=== PATIENT | female | born 1975 | race Hispanic/Latino ===

== ENCOUNTER 2021-06-23 12:03 | Inpatient (IN) | payer OTHER ==
[~2021-06-23] VITALS: Ht 177.8 cm; Wt 106.9 kg
[2021-06-23 12:43] LABS: BASOPHILS % (AUTO) 0.7 % (0.0-5.0); HEMATOCRIT 25.7 % (36-48); LYMPHOCYTES % (AUTO) 3.2 % (21.0-51.0); MEAN CORPUSCULAR HEMOGLOBIN 24.9 pg (27.0-33.0); MEAN CORPUSCULAR HGB CONC 31.5 g/dL (32.0-36.0); MEAN CORPUSCULAR VOLUME 79.1 fL (79-99); MONOCYTES % (AUTO) 4.8 % (3.0-13.0); NEUTROPHILS % (AUTO) 89.2 % (40.0-77.0); PLATELET COUNT (AUTO) 397 K/uL (130-400); RED BLOOD CELL COUNT(AUTO) 3.25 MIL/uL (4.00-5.50); RED CELL DISTRIBUTION WIDTH 14.6 % (11.0-15.5); WHITE BLOOD COUNT (AUTO) 22.5 K/uL (4.8-10.8)
[2021-06-23 12:58] LABS: APPEARANCE,URINE CLOUDY (CLEAR); BILIRUBIN,URINE SMALL (NEGATIVE); COLOR,URINE YELLOW (YELLOW); GLUCOSE, URINE (UA) NEGATIVE (NEGATIVE); KETONES,URINE 5 mg/dL (NEGATIVE); LEUKOCYTE ESTERASE ,URINE SMALL (NEGATIVE); NITRATE,URINE NEGATIVE (NEGATIVE); OCCULT BLOOD,URINE SMALL (NEGATIVE); PROTEIN,URINE 30 mg/dL (NEGATIVE); UROBILINOGEN,URINE 0.2 mg/dL (0.2-1.0)
[2021-06-23 13:12] LABS: CREATININE 2.2 mg/dL (0.5-1.5); POTASSIUM 4.9 mmol/L (3.5-5.1)
[2021-06-23 13:17] LABS: ALBUMIN 2.2 g/dL (3.5-5.0); BILIRUBIN,TOTAL 0.8 mg/dL (0.2-1.0); TOTAL PROTEIN, SERUM 7.8 g/dL (6.0-8.3)
[2021-06-23 13:20] LABS: HCG,QUAL RESULT NEGATIVE (NEGATIVE)
[2021-06-23 13:22] LABS: BACTERIA,URINE Moderate /HPF (None Seen)
[2021-06-23 13:23] LABS: AMORPHOUS SEDIMENT,UR Few /LPF (None Seen)
[2021-06-23] MEDS ORDERED: VANCOMYCIN 1G VIAL IVPB ONE (13:30)
[2021-06-23] MEDS ORDERED: INSULIN HUMULIN R 100 UNIT/ML 3ML IV ONE (13:30)
[2021-06-23] MEDS ORDERED: 0.9% NACL 250ML IVPB ONE (13:30)
[2021-06-23] MEDS: CLINDAMYCIN IVPB 600MG/50ML 50 ML IV SCH ×2 (13:39→22:03)
[2021-06-23] MEDS: 0.9%NACL 1000ML 1,000 ML IV SCH ×2 (13:39→16:43)
[2021-06-23] MEDS ORDERED: ZOSYN 3.375GM +NS 50ML IV ONE ×2 (14:00→14:30)
[2021-06-23] MEDS ORDERED: ZOSYN 3.375GM+NS 50ML 3.38 GM in 0.9%NACL 50ML 50 ML IV SCH (14:30)
[2021-06-23] MEDS ORDERED: PHARMACY COMMUNICATION MISC SCH ×2 (14:30)
[2021-06-23] MEDS ORDERED: 0.9%NACL 50ML 50 ML IV ONE (14:30)
[2021-06-23 15:32] LABS: HEMOGLOBIN A1C 10.1 % (4.0-6.0)
[2021-06-23 15:56] LABS: ABG BASE EXCESS -3.2 mmol/L (-2.0-3.0); ABG HCO3 19.9 mmol/L (21.0-28.0); ABG OXYGEN SATURATION 97.3 % (95.0-99.0); ABG PCO2 31 mmHg (32-45)
[2021-06-23] MEDS ORDERED: INSULIN GLARGINE 100 UNITS/ML 10 ML VIAL SQ ONE (16:30)
[2021-06-23] MEDS: LACTATED RINGERS 1000ML 1,000 ML IV SCH (16:41)
[2021-06-23] MEDS: LINEZOLID 600 MG/ISO-OSM 300 ML IV SCH (18:38)
[2021-06-23] MEDS: INSULIN HUMULIN R 100 UNIT/ML 3ML SQ SCH (18:53)
[2021-06-23 20:10] LABS: INR 1.36 (0.85-1.15); PROTHROMBIN TIME 14.4 SEC (9.6-11.6)
[2021-06-23 20:11] LABS: PARTIAL THROMBOPLASTIN TIME 36.4 SEC (26.3-35.5)
[2021-06-23] MEDS ORDERED: ONDANSETRON 4MG INJ ONE (20:39)
[2021-06-23] MEDS ORDERED: MORPHINE 2 MG SYG ONE (20:40)
[2021-06-23] MEDS: ONDANSETRON 4MG INJ IVP PRN (20:48)
[2021-06-23] MEDS: MORPHINE 2 MG SYG IVP PRN (20:48)
[2021-06-23] MEDS: ZOSYN 3.375GM+NS 50ML 50 ML IV SCH (21:00)
[2021-06-23] MEDS ORDERED: LABETALOL 20MG SYG IV PRN (21:00)
[2021-06-23] MEDS: FAMOTIDINE 20MG TAB PO SCH (22:03)
[2021-06-23] MEDS ORDERED: ROPIVACAINE 0.5% 5MG/ML 30ML IJ ONE (23:00)
[2021-06-23] MEDS ORDERED: MIDAZOLAM HCL 1 MG/ML 5ML VIAL ONE (23:00)
[2021-06-23] MEDS ORDERED: KETAMINE 50MG/ML SYRINGE 50 MG/ML DISP.SYRIN IV ONE (23:01)
[2021-06-23] MEDS ORDERED: MIDAZOLAM HCL 1 MG/ML 2ML VIAL ONE (23:25)
[2021-06-24] VITALS (46 sets, daily range): BP systolic 92–132; BP diastolic 45–70
[2021-06-24] MEDS: LACTATED RINGERS 1000ML 1,000 ML IV SCH ×3 (00:52→21:56)
[2021-06-24] MEDS: INSULIN HUMULIN R 100 UNIT/ML 3ML SQ SCH ×5 (01:14→17:51)
[2021-06-24] MEDS: LINEZOLID 600 MG/ISO-OSM 300 ML IV SCH ×2 (02:20→15:34)
[2021-06-24 04:15] LABS: BASOPHILS % (AUTO) 0.6 % (0.0-5.0); EOSINOPHILS % (AUTO) 0.4 % (0.0-8.0); HEMATOCRIT 22.2 % (36-48); LYMPHOCYTES % (AUTO) 6.6 % (21.0-51.0); MEAN CORPUSCULAR HEMOGLOBIN 25.7 pg (27.0-33.0); MEAN CORPUSCULAR HGB CONC 32.4 g/dL (32.0-36.0); MEAN CORPUSCULAR VOLUME 79.3 fL (79-99); MONOCYTES % (AUTO) 7.1 % (3.0-13.0); NEUTROPHILS % (AUTO) 83.9 % (40.0-77.0); PLATELET COUNT (AUTO) 346 K/uL (130-400); RED CELL DISTRIBUTION WIDTH 14.9 % (11.0-15.5); WHITE BLOOD COUNT (AUTO) 18.9 K/uL (4.8-10.8)
[2021-06-24 04:33] LABS: CREATININE 1.6 mg/dL (0.5-1.5); MAGNESIUM 1.4 mg/dL (1.80-2.40); PHOSPHORUS 3.8 mg/dL (2.5-4.9); POTASSIUM 4.4 mmol/L (3.5-5.1)
[2021-06-24] MEDS: CLINDAMYCIN IVPB 600MG/50ML 50 ML IV SCH ×2 (04:43→12:29)
[2021-06-24] MEDS ORDERED: MAGNESIUM 2GM PREMIX 50ML 50 ML IV ONE (04:57)
[2021-06-24] MEDS ORDERED: INSULIN GLARGINE 100 UNITS/ML 10 ML VIAL SQ SCH (08:05)
[2021-06-24] MEDS: ENOXAPARIN SODIUM 40 MG/0.4 ML SYRINGE SQ SCH (08:40)
[2021-06-24] MEDS: ZOSYN 3.375GM+NS 50ML 50 ML IV SCH ×2 (08:45→21:56)
[2021-06-24] MEDS: ONDANSETRON 4MG INJ IVP PRN (12:29)
[2021-06-24] MEDS: MORPHINE 2 MG SYG IVP PRN ×3 (12:30→22:42)
[2021-06-24] MEDS ORDERED: MAGNESIUM 2GM PREMIX 50ML 50 ML IV SCH (13:30)
[2021-06-24 14:19] LABS: APPEARANCE,URINE CLOUDY (CLEAR); BILIRUBIN,URINE NEGATIVE (NEGATIVE); COLOR,URINE YELLOW (YELLOW); GLUCOSE, URINE (UA) 100 mg/dL (NEGATIVE); KETONES,URINE NEGATIVE (NEGATIVE); LEUKOCYTE ESTERASE ,URINE MODERATE (NEGATIVE); NITRATE,URINE NEGATIVE (NEGATIVE); OCCULT BLOOD,URINE SMALL (NEGATIVE); PH,URINE 5.5 (5.0-8.0); PROTEIN,URINE TRACE mg/dL (NEGATIVE); UROBILINOGEN,URINE 0.2 mg/dL (0.2-1.0)
[2021-06-24 15:32] LABS: AMORPHOUS SEDIMENT,UR Few /LPF (None Seen); BACTERIA,URINE Few /HPF (None Seen); RBC,URINE 0-1 /HPF (0-1); SQUAMOUS EPITHELIAL CELL,UR Rare /HPF (0-2)
[2021-06-24 19:10] LABS: HEMATOCRIT 24.2 % (36-48)
[2021-06-24] MEDS: FAMOTIDINE 20MG TAB PO SCH (21:57)
[2021-06-25] VITALS (11 sets, daily range): BP systolic 108–148; BP diastolic 61–80
[2021-06-25] MEDS: INSULIN HUMULIN R 100 UNIT/ML 3ML SQ SCH ×10 (00:24→20:34)
[2021-06-25] MEDS: LINEZOLID 600 MG/ISO-OSM 300 ML IV SCH ×2 (03:29→14:17)
[2021-06-25] MEDS: MORPHINE 2 MG SYG IVP PRN ×4 (03:30→22:40)
[2021-06-25 03:42] LABS: HEMATOCRIT 24.3 % (36-48); MEAN CORPUSCULAR HEMOGLOBIN 25.8 pg (27.0-33.0); MEAN CORPUSCULAR HGB CONC 31.7 g/dL (32.0-36.0); MEAN CORPUSCULAR VOLUME 81.5 fL (79-99); PLATELET COUNT (AUTO) 359 K/uL (130-400); RED BLOOD CELL COUNT(AUTO) 2.98 MIL/uL (4.00-5.50); RED CELL DISTRIBUTION WIDTH 15.8 % (11.0-15.5); WHITE BLOOD COUNT (AUTO) 18.3 K/uL (4.8-10.8)
[2021-06-25 03:56] LABS: CREATININE 1.4 mg/dL (0.5-1.5); POTASSIUM 4.1 mmol/L (3.5-5.1)
[2021-06-25 04:13] LABS: BAND NEUTROPHILS % (MANUAL) 5 % (0-2); LYMPHOCYTES % (MANUAL) 6 % (22-44); MONOCYTES % (MANUAL) 5 % (2-9); SEGMENTED NEUTROPHILS % 84 % (40-70)
[2021-06-25 04:14] LABS: MAN.DIFF COMMENT-IMPRESSION MANUAL DIFFERENTIAL
[2021-06-25] MEDS ORDERED: Vitamin B Complex/Vit C/Folic Acid ONE (07:28)
[2021-06-25] MEDS: Vitamin B Complex/Vit C/Folic Acid PO SCH (07:53)
[2021-06-25] MEDS: ENOXAPARIN SODIUM 40 MG/0.4 ML SYRINGE SQ SCH (07:54)
[2021-06-25] MEDS: ZOSYN 3.375GM+NS 50ML 50 ML IV SCH ×2 (07:54→19:34)
[2021-06-25] MEDS: INSULIN GLARGINE 100 UNITS/ML 10 ML VIAL SQ SCH ×2 (07:58→07:59)
[2021-06-25] MEDS: LACTATED RINGERS 1000ML 1,000 ML IV SCH ×3 (07:59→20:29)
[2021-06-25] MEDS: ACETAMINOPHEN WITH CODEINE 1 TAB TAB PO PRN (12:06)
[2021-06-25] MEDS: AMLODIPINE 5 MG TAB PO SCH (14:17)
[2021-06-25] MEDS: FAMOTIDINE 20MG TAB PO SCH (19:34)
[2021-06-26] VITALS (21 sets, daily range): BP systolic 117–160; BP diastolic 51–85
[2021-06-26] MEDS: LINEZOLID 600 MG/ISO-OSM 300 ML IV SCH (01:56)
[2021-06-26 04:06] LABS: BASOPHILS % (AUTO) 0.5 % (0.0-5.0); EOSINOPHILS % (AUTO) 1.3 % (0.0-8.0); HEMATOCRIT 25.8 % (36-48); LYMPHOCYTES % (AUTO) 13.1 % (21.0-51.0); MEAN CORPUSCULAR HEMOGLOBIN 25.2 pg (27.0-33.0); MEAN CORPUSCULAR HGB CONC 31.4 g/dL (32.0-36.0); MEAN CORPUSCULAR VOLUME 80.4 fL (79-99); MONOCYTES % (AUTO) 8.8 % (3.0-13.0); NEUTROPHILS % (AUTO) 73.3 % (40.0-77.0); PLATELET COUNT (AUTO) 366 K/uL (130-400); RED BLOOD CELL COUNT(AUTO) 3.21 MIL/uL (4.00-5.50); RED CELL DISTRIBUTION WIDTH 15.8 % (11.0-15.5); WHITE BLOOD COUNT (AUTO) 12.7 K/uL (4.8-10.8)
[2021-06-26 04:25] LABS: CREATININE 1.2 mg/dL (0.5-1.5); MAGNESIUM 1.7 mg/dL (1.80-2.40); PHOSPHORUS 5.1 mg/dL (2.5-4.9); POTASSIUM 4.1 mmol/L (3.5-5.1)
[2021-06-26] MEDS: INSULIN HUMULIN R 100 UNIT/ML 3ML SQ SCH ×7 (05:36→20:37)
[2021-06-26] MEDS: INSULIN GLARGINE 100 UNITS/ML 10 ML VIAL SQ SCH (05:37)
[2021-06-26] MEDS: MORPHINE 2 MG SYG IVP PRN ×3 (06:06→17:38)
[2021-06-26] MEDS ORDERED: DEXTROSE 50%-WATER 50 ML DISP.SYRIN IV PRN (07:00)
[2021-06-26] MEDS ORDERED: GLUCAGON 1MG KIT 1 MG ML IM PRN (07:00)
[2021-06-26] MEDS: ENOXAPARIN SODIUM 40 MG/0.4 ML SYRINGE SQ SCH (08:52)
[2021-06-26] MEDS: AMLODIPINE 5 MG TAB PO SCH (08:53)
[2021-06-26] MEDS: Vitamin B Complex/Vit C/Folic Acid PO SCH (08:53)
[2021-06-26] MEDS: ZOSYN 3.375GM+NS 50ML 50 ML IV SCH (09:04)
[2021-06-26] MEDS: LACTATED RINGERS 1000ML 1,000 ML IV SCH (12:19)
[2021-06-26] MEDS ORDERED: 0.9%NACL 1000ML 1,000 ML IV ONE (15:30)
[2021-06-26] MEDS ORDERED: PROPOFOL 10 MG/ML 20ML VIAL IV ONE (15:35)
[2021-06-26] MEDS ORDERED: ONDANSETRON 4MG INJ ONE (15:35)
[2021-06-26] MEDS ORDERED: MIDAZOLAM HCL 1 MG/ML 2ML VIAL ONE (15:35)
[2021-06-26] MEDS ORDERED: LIDOCAINE PF 100MG/5ML (2%) SYRINGE 5ML ONE (15:35)
[2021-06-26] MEDS ORDERED: MEPERIDINE-PF 25 MG/ML SYG ONE (15:36)
[2021-06-26] MEDS ORDERED: FENTANYL CITRATE PF 50 MCG/1 ML 2ML VIAL ONE ×2 (15:36→16:27)
[2021-06-26] MEDS ORDERED: KETAMINE 50MG/ML SYRINGE 50 MG/ML DISP.SYRIN IV ONE (15:47)
[2021-06-26] MEDS: CEFAZOLIN SODIUM 1 GM VIAL ONE ×2 (16:12→17:14)
[2021-06-26] MEDS: FAMOTIDINE 20MG TAB PO SCH (20:36)
[2021-06-27] MEDS: MORPHINE 2 MG SYG IVP PRN ×4 (00:30→23:39)
[2021-06-27 03:56] LABS: BASOPHILS % (AUTO) 0.8 % (0.0-5.0); HEMATOCRIT 27.6 % (36-48); LYMPHOCYTES % (AUTO) 14.5 % (21.0-51.0); MEAN CORPUSCULAR HGB CONC 31.5 g/dL (32.0-36.0); MEAN CORPUSCULAR VOLUME 82.4 fL (79-99); MONOCYTES % (AUTO) 9.1 % (3.0-13.0); NEUTROPHILS % (AUTO) 69.1 % (40.0-77.0); PLATELET COUNT (AUTO) 370 K/uL (130-400); RED BLOOD CELL COUNT(AUTO) 3.35 MIL/uL (4.00-5.50); RED CELL DISTRIBUTION WIDTH 15.9 % (11.0-15.5); WHITE BLOOD COUNT (AUTO) 11.9 K/uL (4.8-10.8)
[2021-06-27 04:12] VITALS: BP 165/84
[2021-06-27 04:15] LABS: ALBUMIN 1.7 g/dL (3.5-5.0); BILIRUBIN,TOTAL 0.2 mg/dL (0.2-1.0); CRP QUANTITATIVE 84.1 mg/L (0.00-9.0); MAGNESIUM 1.8 mg/dL (1.80-2.40); POTASSIUM 3.9 mmol/L (3.5-5.1); TOTAL PROTEIN, SERUM 7.2 g/dL (6.0-8.3)
[2021-06-27 05:06] LABS: ERYTHROCYTE SEDIMENTATION RATE 128 MM/HR (0-20)
[2021-06-27] MEDS: INSULIN HUMULIN R 100 UNIT/ML 3ML SQ SCH ×7 (06:37→21:00)
[2021-06-27] MEDS ORDERED: INSULIN GLARGINE 100 UNITS/ML 10 ML VIAL SQ SCH (07:00)
[2021-06-27] MEDS ORDERED: COMPOUND IV MISC 1 EACH IVSOLN MISC PRN (07:00)
[2021-06-27] MEDS: INSULIN GLARGINE 100 UNITS/ML 10 ML VIAL SQ SCH ×2 (07:28→07:40)
[2021-06-27 07:30] VITALS: BP 144/79
[2021-06-27] MEDS: LACTATED RINGERS 1000ML 1,000 ML IV SCH ×2 (07:45→18:30)
[2021-06-27] MEDS: Vitamin B Complex/Vit C/Folic Acid PO SCH (07:55)
[2021-06-27] MEDS: ENOXAPARIN SODIUM 40 MG/0.4 ML SYRINGE SQ SCH (07:57)
[2021-06-27] MEDS: AMLODIPINE 5 MG TAB PO SCH (10:17)
[2021-06-27] MEDS: IRON SUCROSE COMPLEX 300 MG in 0.9% NACL 250ML 250 ML IV SCH (10:18)
[2021-06-27 11:00] VITALS: BP 135/87
[2021-06-27] MEDS: ZINC SULFATE 220 CAPSULE PO SCH (11:54)
[2021-06-27 16:00] VITALS: BP 166/82
[2021-06-27] MEDS: EPOETIN ALFA-EPBX (NON-ESRD) 10,000 UNIT/ML VIAL SQ SCH (17:59)
[2021-06-27] MEDS: FAMOTIDINE 20MG TAB PO SCH (19:56)
[2021-06-27 20:41] VITALS: BP 149/78
[2021-06-27 23:56] VITALS: BP 153/85
[2021-06-28 03:59] VITALS: BP 168/80
[2021-06-28 04:25] LABS: BASOPHILS % (AUTO) 0.9 % (0.0-5.0); HEMATOCRIT 29.1 % (36-48); LYMPHOCYTES % (AUTO) 20.2 % (21.0-51.0); MEAN CORPUSCULAR HEMOGLOBIN 25.5 pg (27.0-33.0); MEAN CORPUSCULAR HGB CONC 31.6 g/dL (32.0-36.0); MEAN CORPUSCULAR VOLUME 80.6 fL (79-99); MONOCYTES % (AUTO) 9.4 % (3.0-13.0); NEUTROPHILS % (AUTO) 61.6 % (40.0-77.0); NUCLEATED RED BLOOD CELLS 0.2 % (0.0-0.19); PLATELET COUNT (AUTO) 424 K/uL (130-400); RED BLOOD CELL COUNT(AUTO) 3.61 MIL/uL (4.00-5.50); RED CELL DISTRIBUTION WIDTH 15.7 % (11.0-15.5); WHITE BLOOD COUNT (AUTO) 10.3 K/uL (4.8-10.8)
[2021-06-28] MEDS: LACTATED RINGERS 1000ML 1,000 ML IV SCH ×3 (04:30→20:21)
[2021-06-28 04:55] LABS: ALBUMIN 1.9 g/dL (3.5-5.0); BILIRUBIN,TOTAL 0.3 mg/dL (0.2-1.0); POTASSIUM 3.8 mmol/L (3.5-5.1); TOTAL PROTEIN, SERUM 8.1 g/dL (6.0-8.3)
[2021-06-28 07:30] VITALS: BP 158/86
[2021-06-28] MEDS: INSULIN HUMULIN R 100 UNIT/ML 3ML SQ SCH ×7 (07:30→20:16)
[2021-06-28] MEDS: EPOETIN ALFA-EPBX (NON-ESRD) 10,000 UNIT/ML VIAL SQ SCH (07:47)
[2021-06-28] MEDS: INSULIN GLARGINE 100 UNITS/ML 10 ML VIAL SQ SCH (08:49)
[2021-06-28] MEDS: ENOXAPARIN SODIUM 40 MG/0.4 ML SYRINGE SQ SCH (08:51)
[2021-06-28] MEDS: Vitamin B Complex/Vit C/Folic Acid PO SCH (08:51)
[2021-06-28] MEDS: ZINC SULFATE 220 CAPSULE PO SCH (08:51)
[2021-06-28] MEDS: AMLODIPINE 5 MG TAB PO SCH (08:51)
[2021-06-28] MEDS: IRON SUCROSE COMPLEX 300 MG in 0.9% NACL 250ML 250 ML IV SCH (08:53)
[2021-06-28] MEDS: ACETAMINOPHEN WITH CODEINE 1 TAB TAB PO PRN ×2 (08:57→14:28)
[2021-06-28 11:00] VITALS: BP 136/81
[2021-06-28] MEDS: ASCORBIC ACID 500 MG TAB PO SCH (12:14)
[2021-06-28 16:00] VITALS: BP 140/59
[2021-06-28] MEDS: FAMOTIDINE 20MG TAB PO SCH (20:20)
[2021-06-28] MEDS: MORPHINE 2 MG SYG IVP PRN (20:20)
[2021-06-28 23:00] VITALS: BP 136/69
[2021-06-29 03:48] LABS: BASOPHILS % (AUTO) 0.8 % (0.0-5.0); EOSINOPHILS % (AUTO) 3.2 % (0.0-8.0); HEMATOCRIT 29.1 % (36-48); LYMPHOCYTES % (AUTO) 18.7 % (21.0-51.0); MEAN CORPUSCULAR HEMOGLOBIN 25.8 pg (27.0-33.0); MEAN CORPUSCULAR VOLUME 80.8 fL (79-99); NEUTROPHILS % (AUTO) 58.6 % (40.0-77.0); NUCLEATED RED BLOOD CELLS 0.3 % (0.0-0.19); PLATELET COUNT (AUTO) 331 K/uL (130-400); RED CELL DISTRIBUTION WIDTH 15.9 % (11.0-15.5)
[2021-06-29 04:03] VITALS: BP 153/71
[2021-06-29 04:08] LABS: ALBUMIN 1.9 g/dL (3.5-5.0); BILIRUBIN,TOTAL 0.2 mg/dL (0.2-1.0); CREATININE 0.9 mg/dL (0.5-1.5); POTASSIUM 4.2 mmol/L (3.5-5.1); TOTAL PROTEIN, SERUM 7.7 g/dL (6.0-8.3)
[2021-06-29] MEDS ORDERED: MORPHINE 2 MG SYG ONE (04:49)
[2021-06-29] MEDS: INSULIN HUMULIN R 100 UNIT/ML 3ML SQ SCH ×7 (06:03→23:29)
[2021-06-29 07:30] VITALS: BP 134/67
[2021-06-29] MEDS: AMLODIPINE 5 MG TAB PO SCH (08:26)
[2021-06-29] MEDS: ZINC SULFATE 220 CAPSULE PO SCH (08:26)
[2021-06-29] MEDS: Vitamin B Complex/Vit C/Folic Acid PO SCH (08:26)
[2021-06-29] MEDS: IRON SUCROSE COMPLEX 300 MG in 0.9% NACL 250ML 250 ML IV SCH (08:26)
[2021-06-29] MEDS: ENOXAPARIN SODIUM 40 MG/0.4 ML SYRINGE SQ SCH (08:27)
[2021-06-29] MEDS: EPOETIN ALFA-EPBX (NON-ESRD) 10,000 UNIT/ML VIAL SQ SCH (08:27)
[2021-06-29] MEDS: INSULIN GLARGINE 100 UNITS/ML 10 ML VIAL SQ SCH (08:30)
[2021-06-29] MEDS: ASCORBIC ACID 500 MG TAB PO SCH (08:31)
[2021-06-29] MEDS: ACETAMINOPHEN WITH CODEINE 1 TAB TAB PO PRN ×2 (08:32→20:01)
[2021-06-29] MEDS: LACTATED RINGERS 1000ML 1,000 ML IV SCH (10:30)
[2021-06-29] MEDS: GABAPENTIN 300 MG CAPSULE PO SCH ×2 (10:35→20:02)
[2021-06-29 11:00] VITALS: BP 136/83
[2021-06-29 16:00] VITALS: BP 108/60
[2021-06-29] MEDS: FAMOTIDINE 20MG TAB PO SCH (20:02)
[2021-06-29 20:28] VITALS: BP 145/89
[2021-06-29 23:22] VITALS: BP 140/79
[2021-06-30] MEDS: MORPHINE 2 MG SYG IVP PRN ×3 (01:00→22:19)
[2021-06-30 03:44] VITALS: BP 138/78
[2021-06-30 03:47] LABS: EOSINOPHILS % (AUTO) 3.1 % (0.0-8.0); HEMATOCRIT 30.2 % (36-48); LYMPHOCYTES % (AUTO) 20.7 % (21.0-51.0); MEAN CORPUSCULAR HEMOGLOBIN 25.6 pg (27.0-33.0); MEAN CORPUSCULAR HGB CONC 31.1 g/dL (32.0-36.0); MEAN CORPUSCULAR VOLUME 82.3 fL (79-99); MONOCYTES % (AUTO) 9.1 % (3.0-13.0); NEUTROPHILS % (AUTO) 57.4 % (40.0-77.0); NUCLEATED RED BLOOD CELLS 0.4 % (0.0-0.19); PLATELET COUNT (AUTO) 422 K/uL (130-400); RED BLOOD CELL COUNT(AUTO) 3.67 MIL/uL (4.00-5.50); RED CELL DISTRIBUTION WIDTH 16.1 % (11.0-15.5); WHITE BLOOD COUNT (AUTO) 11.4 K/uL (4.8-10.8)
[2021-06-30 04:02] LABS: ALBUMIN 2.1 g/dL (3.5-5.0); CREATININE 0.8 mg/dL (0.5-1.5); CRP QUANTITATIVE 45.2 mg/L (0.00-9.0); POTASSIUM 4.2 mmol/L (3.5-5.1)
[2021-06-30 04:55] LABS: ERYTHROCYTE SEDIMENTATION RATE 114 MM/HR (0-20)
[2021-06-30] MEDS: INSULIN HUMULIN R 100 UNIT/ML 3ML SQ SCH ×8 (06:09→19:51)
[2021-06-30 07:42] VITALS: BP 149/74
[2021-06-30] MEDS: ASCORBIC ACID 500 MG TAB PO SCH (09:18)
[2021-06-30] MEDS: ZINC SULFATE 220 CAPSULE PO SCH (09:18)
[2021-06-30] MEDS: AMLODIPINE 5 MG TAB PO SCH (09:19)
[2021-06-30] MEDS: GABAPENTIN 300 MG CAPSULE PO SCH ×2 (09:19→19:53)
[2021-06-30] MEDS: Vitamin B Complex/Vit C/Folic Acid PO SCH (09:19)
[2021-06-30] MEDS: ENOXAPARIN SODIUM 40 MG/0.4 ML SYRINGE SQ SCH (09:19)
[2021-06-30] MEDS: INSULIN GLARGINE 100 UNITS/ML 10 ML VIAL SQ SCH (09:24)
[2021-06-30] MEDS: EPOETIN ALFA-EPBX (NON-ESRD) 10,000 UNIT/ML VIAL SQ SCH (10:00)
[2021-06-30 11:11] VITALS: BP 122/71
[2021-06-30 16:15] VITALS: BP 143/83
[2021-06-30 19:53] VITALS: BP 157/82
[2021-06-30] MEDS: FAMOTIDINE 20MG TAB PO SCH (19:53)
[2021-06-30] MEDS: ACETAMINOPHEN WITH CODEINE 1 TAB TAB PO PRN (19:54)
[2021-06-30 23:17] VITALS: BP 142/81
[2021-07-01 04:02] LABS: BASOPHILS % (AUTO) 0.9 % (0.0-5.0); HEMATOCRIT 30.7 % (36-48); LYMPHOCYTES % (AUTO) 21.1 % (21.0-51.0); MEAN CORPUSCULAR HEMOGLOBIN 25.8 pg (27.0-33.0); MEAN CORPUSCULAR HGB CONC 30.3 g/dL (32.0-36.0); MONOCYTES % (AUTO) 8.5 % (3.0-13.0); NEUTROPHILS % (AUTO) 60.2 % (40.0-77.0); NUCLEATED RED BLOOD CELLS 0.3 % (0.0-0.19); PLATELET COUNT (AUTO) 452 K/uL (130-400); RED BLOOD CELL COUNT(AUTO) 3.61 MIL/uL (4.00-5.50); RED CELL DISTRIBUTION WIDTH 17.2 % (11.0-15.5); WHITE BLOOD COUNT (AUTO) 12.5 K/uL (4.8-10.8)
[2021-07-01 04:03] VITALS: BP 119/69
[2021-07-01 04:20] LABS: POTASSIUM 4.4 mmol/L (3.5-5.1)
[2021-07-01] MEDS: INSULIN HUMULIN R 100 UNIT/ML 3ML SQ SCH ×5 (06:08→16:30)
[2021-07-01 07:50] VITALS: BP 132/78
[2021-07-01] MEDS: Vitamin B Complex/Vit C/Folic Acid PO SCH (08:12)
[2021-07-01] MEDS: GABAPENTIN 300 MG CAPSULE PO SCH (08:13)
[2021-07-01] MEDS: ZINC SULFATE 220 CAPSULE PO SCH (08:13)
[2021-07-01] MEDS: AMLODIPINE 5 MG TAB PO SCH (08:13)
[2021-07-01] MEDS: ASCORBIC ACID 500 MG TAB PO SCH (08:13)
[2021-07-01] MEDS: INSULIN GLARGINE 100 UNITS/ML 10 ML VIAL SQ SCH (08:14)
[2021-07-01] MEDS: ENOXAPARIN SODIUM 40 MG/0.4 ML SYRINGE SQ SCH (08:14)
[2021-07-01] MEDS: EPOETIN ALFA-EPBX (NON-ESRD) 10,000 UNIT/ML VIAL SQ SCH (09:57)
[2021-07-01 11:05] VITALS: BP 121/77
[2021-07-01] MEDS ORDERED: METF-444 PO (14:22)
[2021-07-01] MEDS ORDERED: INSU100I35 SQ ×2 (14:22)
[2021-07-01] MEDS ORDERED: GABA300C PO (14:22)
[2021-07-01] MEDS ORDERED: AMLO5TAB4 PO (14:22)
[2021-07-01 16:18] VITALS: BP 141/73
== END 2021-07-01 16:30 | disposition home or self-care (01) | DRG 853 ==
LOC: EDH 12:03 → EDHIP 12:04 → 2CH 06-24 00:30 → 4AH 06-25 15:00
PROVIDERS: ADMIT Internal Medicine; ATTEND Internal Medicine
PROC: 0Y6J0Z1 Detachment at Left Lower Leg, High, Open Approach (ICD-10-PCS; principal; 2021-06-23 23:39)
PROC: 30233N1 Transfusion of Nonautologous Red Blood Cells into Peripheral Vein, Percutaneous Approach (ICD-10-PCS; 2021-06-24)
PROC: 0KBT0ZZ Excision of Left Lower Leg Muscle, Open Approach (ICD-10-PCS; 2021-06-27)
DX: A41.9 Sepsis, unspecified organism (principal); A48.0 Gas gangrene; M72.6 Necrotizing fasciitis; E43 Unspecified severe protein-calorie malnutrition; E11.52 Type 2 diabetes mellitus with diabetic peripheral angiopathy with gangrene; N17.9 Acute kidney failure, unspecified; E87.1 Hypo-osmolality and hyponatremia; T79.7XXA Traumatic subcutaneous emphysema, initial encounter; M86.8X7 Other osteomyelitis, ankle and foot; E11.65 Type 2 diabetes mellitus with hyperglycemia; E11.69 Type 2 diabetes mellitus with other specified complication; K76.0 Fatty (change of) liver, not elsewhere classified; R79.89 Other specified abnormal findings of blood chemistry; E11.41 Type 2 diabetes mellitus with diabetic mononeuropathy; G57.92 Unspecified mononeuropathy of left lower limb; I12.9 Hypertensive chronic kidney disease with stage 1 through stage 4 chronic kidney disease, or unspecified chronic kidney disease; Z20.822 Contact with and (suspected) exposure to COVID-19; D64.9 Anemia, unspecified; E78.5 Hyperlipidemia, unspecified; E11.22 Type 2 diabetes mellitus with diabetic chronic kidney disease; E11.610 Type 2 diabetes mellitus with diabetic neuropathic arthropathy; E66.9 Obesity, unspecified; E78.00 Pure hypercholesterolemia, unspecified; N18.9 Chronic kidney disease, unspecified; G54.6 Phantom limb syndrome with pain; G89.29 Other chronic pain; E83.42 Hypomagnesemia; Z68.33 Body mass index [BMI] 33.0-33.9, adult; Z79.4 Long term (current) use of insulin; Z79.84 Long term (current) use of oral hypoglycemic drugs; Z79.899 Other long term (current) drug therapy; Z90.49 Acquired absence of other specified parts of digestive tract; Z87.39 Personal history of other diseases of the musculoskeletal system and connective tissue; Z83.3 Family history of diabetes mellitus; Z82.49 Family history of ischemic heart disease and other diseases of the circulatory system
CPT/HCPCS: 36415; 36430; 36600; 71045; 72192; 73590; 73610; 73630; 73700; 80048; 80053; 81001; 81025; 82010; 82040; 82550; 82728; 82803; 82948; 83036; 83540; 83550; 83605; 83735; 84100; 84145; 84484; 85014; 85018; 85025; 85610; 85651; 85730; 86140; 86850; 86900; 86901; 86923; 87040; 87070; 87076; 87077; 87088; 87186; 87205; 87635; 93005; 93926; 93970; 97039; C9803; G0378; J0690; J1650; J1756; J1815; J2001; J2020; J2175; J2250; J2405; J2543; J2704; J2795; J3010; J3475; J3490; J7030; J7050; J7120; P9016

== ENCOUNTER 2023-11-13 16:49 | Inpatient (IN) | payer OTHER ==
[~2023-11-13] VITALS: Ht 175.3 cm; Wt 113.8 kg
[~2023-11-13 16:49] MED LIST: AMLO5TAB4 PO; GABA300C PO; INSU100I35 SQ; METF-444 PO
[2023-11-13] MEDS ORDERED: ZOSYN 3.375GM +NS 50ML IVPB ONE (17:30)
[2023-11-13 18:27] LABS: BASOPHILS % (AUTO) 1.1 % (0.0-5.0); EOSINOPHILS % (AUTO) 1.1 % (0.0-8.0); HEMATOCRIT 41.3 % (36-48); IMMATURE GRANULOCYTE ABSOLUTE 0.02 K/uL (0-1); LYMPHOCYTES % (AUTO) 21.6 % (21.0-51.0); MEAN CORPUSCULAR HGB CONC 34.1 g/dL (32.0-36.0); MEAN CORPUSCULAR VOLUME 82.1 fL (79-99); MONOCYTES # (AUTO) 0.7 K/uL (0.1-1.0); MONOCYTES % (AUTO) 7.8 % (3.0-13.0); NEUTROPHILS # (AUTO) 6.4 K/uL (1.8-7.7); NEUTROPHILS % (AUTO) 68.2 % (40.0-77.0); PLATELET COUNT (AUTO) 379 K/uL (130-400); RED BLOOD CELL COUNT(AUTO) 5.03 MIL/uL (4.00-5.50); RED CELL DISTRIBUTION WIDTH 13.2 % (11.0-15.5); WHITE BLOOD COUNT (AUTO) 9.3 K/uL (4.8-10.8)
[2023-11-13] MEDS: VANCOMYCIN KIT 1 GM/250 ML IV.KIT IV ONE (18:30)
[2023-11-13 19:07] LABS: ALBUMIN 3.3 g/dL (3.5-5.0); BILIRUBIN,TOTAL 0.3 mg/dL (0.2-1.0); CREATININE 1.1 mg/dL (0.5-1.5); POTASSIUM 3.1 mmol/L (3.5-5.1); TOTAL PROTEIN, SERUM 8.4 g/dL (6.0-8.3)
[2023-11-13] MEDS ORDERED: GLUCAGON 1MG KIT 1 MG ML IM PRN (21:30)
[2023-11-13] MEDS ORDERED: POTASSIUM CHLORIDE 10% ELIXIR 20 MEQ/15 ML UDCUP PO PRN (21:30)
[2023-11-13] MEDS ORDERED: ONDANSETRON 4MG INJ IV PRN (21:30)
[2023-11-13] MEDS ORDERED: MAGNESIUM 2GM PREMIX 50ML 50 ML IV PRN (21:30)
[2023-11-13] MEDS ORDERED: DEXTROSE 50%-WATER 50 ML DISP.SYRIN IV PRN (21:30)
[2023-11-13] MEDS ORDERED: POTASSIUM CHLORIDE 20MEQ/100ML 100 ML IV PRN (21:30)
[2023-11-13] MEDS ORDERED: VANCOMYCIN 1G/250ML KIT 250 ML IV SCH (21:30)
[2023-11-13] MEDS ORDERED: VANCOMYCIN PROTOCOL PER PHARMACY IV SCH (22:00)
[2023-11-13] MEDS ORDERED: CEFEPIME HCL 1 GM VIAL IVPB SCH (22:30)
[2023-11-13] MEDS: CEFEPIME HCL 1 GM VIAL IVPB SCH (22:43)
[2023-11-13] MEDS: KCL 20 MEQ ERTAB PO PRN (22:51)
[2023-11-13] MEDS: METRONIDAZOLE 500MG/100ML BAG 100 ML IVPB ONE (23:19)
[2023-11-13] MEDS: VANCOMYCIN 2GM/500 ML BAG 500 ML IV ONE (23:53)
[2023-11-14 04:34] VITALS: BP 140/82; PULSE 97; RESP 16
[2023-11-14] MEDS ORDERED: ZOSYN 3.375GM+NS 50ML 50 ML IV SCH (05:00)
[2023-11-14] MEDS: METRONIDAZOLE 500MG/100ML BAG 100 ML IVPB SCH (05:36)
[2023-11-14] MEDS: INSULIN HUMULIN R 100 UNIT/ML 3ML SQ SCH (06:05)
[2023-11-14 08:29] LABS: BASOPHILS # (AUTO) 0.08 K/uL (0.00-0.20); EOSINOPHILS # (AUTO) 0.21 K/uL (0.00-0.70); EOSINOPHILS % (AUTO) 2.7 % (0.0-8.0); HEMATOCRIT 38.3 % (36-48); IMMATURE GRANULOCYTE ABSOLUTE 0.03 K/uL (0-1); LYMPHOCYTES # (AUTO) 1.9 K/uL (1.0-4.8); LYMPHOCYTES % (AUTO) 24.9 % (21.0-51.0); MEAN CORPUSCULAR HEMOGLOBIN 28.3 pg (27.0-33.0); MEAN CORPUSCULAR HGB CONC 33.7 g/dL (32.0-36.0); MONOCYTES # (AUTO) 0.7 K/uL (0.1-1.0); MONOCYTES % (AUTO) 9.3 % (3.0-13.0); NEUTROPHILS # (AUTO) 4.7 K/uL (1.8-7.7); NEUTROPHILS % (AUTO) 61.7 % (40.0-77.0); PLATELET COUNT (AUTO) 302 K/uL (130-400); RED BLOOD CELL COUNT(AUTO) 4.56 MIL/uL (4.00-5.50); RED CELL DISTRIBUTION WIDTH 13.2 % (11.0-15.5); WHITE BLOOD COUNT (AUTO) 7.7 K/uL (4.8-10.8)
[2023-11-14 08:47] LABS: CREATININE 0.8 mg/dL (0.5-1.5); MAGNESIUM 1.9 mg/dL (1.80-2.40); POTASSIUM 4.2 mmol/L (3.5-5.1)
[2023-11-14] MEDS ORDERED: VANCOMYCIN 1G/250ML KIT 250 ML IV SCH (11:00)
[2023-11-14] MEDS: FAMOTIDINE 20MG TAB PO SCH (14:54)
[2023-11-14 20:00] VITALS: BP 149/97; PULSE 92; RESP 20; O2SAT 98
[2023-11-14] MEDS: GABAPENTIN 300 MG CAPSULE PO SCH (22:32)
[2023-11-15] VITALS: BP 136/63; PULSE 62; RESP 20
[2023-11-15 04:00] VITALS: BP 109/76; PULSE 92; RESP 18
[2023-11-15 05:52] LABS: BASOPHILS # (AUTO) 0.05 K/uL (0.00-0.20); BASOPHILS % (AUTO) 0.8 % (0.0-5.0); EOSINOPHILS # (AUTO) 0.19 K/uL (0.00-0.70); EOSINOPHILS % (AUTO) 3.1 % (0.0-8.0); HEMATOCRIT 38.4 % (36-48); IMMATURE GRANULOCYTE ABSOLUTE 0.03 K/uL (0-1); LYMPHOCYTES # (AUTO) 1.6 K/uL (1.0-4.8); LYMPHOCYTES % (AUTO) 26.2 % (21.0-51.0); MEAN CORPUSCULAR HEMOGLOBIN 28.2 pg (27.0-33.0); MEAN CORPUSCULAR HGB CONC 32.8 g/dL (32.0-36.0); MEAN CORPUSCULAR VOLUME 85.9 fL (79-99); MONOCYTES # (AUTO) 0.6 K/uL (0.1-1.0); NEUTROPHILS # (AUTO) 3.6 K/uL (1.8-7.7); NEUTROPHILS % (AUTO) 59.4 % (40.0-77.0); PLATELET COUNT (AUTO) 261 K/uL (130-400); RED BLOOD CELL COUNT(AUTO) 4.47 MIL/uL (4.00-5.50); RED CELL DISTRIBUTION WIDTH 13.2 % (11.0-15.5); WHITE BLOOD COUNT (AUTO) 6.1 K/uL (4.8-10.8)
[2023-11-15 06:13] LABS: ALBUMIN 2.6 g/dL (3.5-5.0); BILIRUBIN,TOTAL 0.5 mg/dL (0.2-1.0); CREATININE 0.8 mg/dL (0.5-1.5); MAGNESIUM 1.8 mg/dL (1.80-2.40); POTASSIUM 4.5 mmol/L (3.5-5.1); TOTAL PROTEIN, SERUM 6.9 g/dL (6.0-8.3)
[2023-11-15 07:19] LABS: ERYTHROCYTE SEDIMENTATION RATE 61 MM/HR (0-20)
[2023-11-15 07:45] VITALS: O2SAT 99
[2023-11-15 08:00] VITALS: BP 166/107; PULSE 102; RESP 16
[2023-11-15] MEDS ORDERED: CLIN-141 PO (08:15)
[2023-11-15] MEDS ORDERED: LEVO-70 PO (08:15)
[2023-11-15] MEDS: ENOXAPARIN SODIUM 40 MG/0.4 ML SYRINGE SQ SCH (09:01)
[2023-11-15] MEDS: AMLODIPINE 5 MG TAB PO SCH (09:01)
== END 2023-11-15 11:40 | disposition home or self-care (01) | DRG 872 ==
LOC: EDH 16:49 → EDHIP 16:50 → 3CH 11-14 16:31
PROVIDERS: ADMIT Hospitalist; ATTEND Hospitalist
DX: A41.9 Sepsis, unspecified organism (principal); L03.115 Cellulitis of right lower limb; E11.42 Type 2 diabetes mellitus with diabetic polyneuropathy; E11.621 Type 2 diabetes mellitus with foot ulcer; L97.519 Non-pressure chronic ulcer of other part of right foot with unspecified severity; E11.628 Type 2 diabetes mellitus with other skin complications; E11.65 Type 2 diabetes mellitus with hyperglycemia; E87.6 Hypokalemia; E66.9 Obesity, unspecified; E78.00 Pure hypercholesterolemia, unspecified; I10 Essential (primary) hypertension; Z82.49 Family history of ischemic heart disease and other diseases of the circulatory system; Z83.3 Family history of diabetes mellitus; Z89.512 Acquired absence of left leg below knee; Z90.49 Acquired absence of other specified parts of digestive tract; Z68.37 Body mass index [BMI] 37.0-37.9, adult
CPT/HCPCS: 36415; 73630; 80048; 80053; 80061; 82948; 83036; 83605; 83735; 84145; 85025; 85651; 86140; 87040; 93925; G0378; J0692; J1650; J1815; J3490; J3370

== ENCOUNTER 2023-12-11 09:49 | Outpatient (CLI) | payer OTHER ==
[~2023-12-11 09:49] MED LIST changes: +CLIN-141 PO; +LEVO-70 PO
== END 2023-12-11 13:15 | disposition home or self-care (01) ==
LOC: WHH 09:49
PROVIDERS: ATTEND Podiatrist Foot & Ankle Surgery
DX: E11.621 Type 2 diabetes mellitus with foot ulcer (principal); L97.411 Non-pressure chronic ulcer of right heel and midfoot limited to breakdown of skin; L97.511 Non-pressure chronic ulcer of other part of right foot limited to breakdown of skin; E11.42 Type 2 diabetes mellitus with diabetic polyneuropathy; I10 Essential (primary) hypertension; E78.00 Pure hypercholesterolemia, unspecified; E66.9 Obesity, unspecified; Z68.36 Body mass index [BMI] 36.0-36.9, adult; Z79.4 Long term (current) use of insulin; Z79.84 Long term (current) use of oral hypoglycemic drugs; Z90.49 Acquired absence of other specified parts of digestive tract; Z79.899 Other long term (current) drug therapy
CPT/HCPCS: 99214